=== PATIENT | female | born 1990 | race Caucasian/White ===

== ENCOUNTER 2016-11-29 01:14 | Inpatient (IN) | payer OTHER ==
[2016-11-29] VITALS (54 sets, daily range): BP systolic 108–207; BP diastolic 55–178; PULSE 80–184; RESP 16–18; TEMP 97.9–99.6; O2SAT 98
[~2016-11-29] VITALS: Ht 167.6 cm; Wt 86.2 kg
[~2016-11-29 01:14] MED LIST: CALNTAB; LEVO75TA3 PO
[2016-11-29] MEDS ORDERED: LACTATED RINGER'S 1000 ML INJ 1,000 ML IV PRN (02:53)
[2016-11-29] MEDS ORDERED: CITRIC ACID-SODIUM CITRATE LIQ 30 ML UDC PO SCH (03:00)
[2016-11-29] MEDS ORDERED: LIDOCAINE HCL 1% 50 ML VIAL I-DERMAL PRN (03:00)
[2016-11-29] MEDS ORDERED: OXYTOCIN 30 UNITS-500ML PREMIX 500 ML IV ONE (03:00)
[2016-11-29] MEDS ORDERED: SODIUM CHLORID 0.9% 500 ML INJ 500 ML IV PRN (03:00)
[2016-11-29] MEDS ORDERED: MINERAL OIL 10 ML VIAL TOPICAL PRN (03:00)
[2016-11-29] MEDS ORDERED: LIDOCAINE HCL 1% 50 ML VIAL INFIL PRN (03:00)
[2016-11-29] MEDS ORDERED: ONDANSETRON HCL 4 MG/2 ML VIAL IV PRN (03:00)
[2016-11-29] MEDS ORDERED: SODIUM CHLOR 0.9% 1000 ML INJ 1,000 ML IV PRN (03:13)
[2016-11-29 03:33] LABS: BACTERIA, URINE RARE /hpf; BLOOD, URINE MOD (NEG); GLUCOSE,URINE NEG (NEG); KETONE, URINE NEG (NEG); NITRITE,URINE NEG (NEG); SQUAMOUS EPITHELIAL CELL URINE 1 /hpf (0-5); URINE COLOR LIGHT-YELLOW (YELLW/STRAW)
[2016-11-29 03:35] LABS: COMMENT (UR) CULT NOT INDICATED; CULTURE IF INDICATED CULT NOT INDICATED
--- NOTE | 2016-11-29 03:38 | HHI.HP ---
HPI Chief Complaint Contractions Date Seen: Nov 29, 2016 Time Seen: 02:50 Travel History International Travel<30 Days: No Contact w/Intl Traveler<30Days: No Known Affected Area: No History of Present Illness HPI 25-year-old at 40 weeks of gestation, EDC is 11/29/16, patient presents to labor and delivery complaining of frequent contractions, she denies leakage of fluids, vaginal bleeding and decreased movements. care is with the [facility]. course is significant for hypothyroidism. Examination shows patient is verito irregularly, vaginal exam shows cervix is 2 cm dilated 80% effaced -3 station, bedside ultrasound shows oligohydramnios with maximum fluid pocket less than 2 cm. Patient appears uncomfortable , pain score is 8 out of 10 during contractions. Para: 0 : 1 Miscarriage: 0 : 0 History Past Medical History Narrative Medical Hypothyroidism Obstetric History Obstetric History Primigravida Past Surgical History Narrative Surgical Denies Family History Narrative Family History Mother has hypothyroidism, grandmother has heart disease Social History Alcohol Use: No Tobacco Use: No Substance Abuse: No Allergies-Medications (Allergen,Severity, Reaction): Coded Allergies: No Known Allergies (Unverified , 11/25/16) Home Meds Reported Medications Levothyroxine 75 Mcg Tab75 Mcg PO EVERY OTHER DAY #30 TAB Ref 0 10/18/16 Vitamin (Calna)1 Tab Tab 08/30/16 Review of Systems Except as stated in HPI: all other systems reviewed are Neg Genitourinary: Other (contractions) Endocrine: Other (hypothyroidism) Physical Exam Narrative GENERAL: Well-nourished, well-developed patient. SKIN: Warm and dry. HEAD: Normocephalic and atraumatic. EYES: No scleral icterus. No injection or drainage. ENT: No nasal drainage noted. Mucous membranes pink. Airway patent. NECK: Supple, trachea midline. No JVD. CARDIOVASCULAR: Regular rate and rhythm without murmurs, gallops, or rubs. RESPIRATORY: Breath sounds equal bilaterally. No accessory muscle use. BREASTS: Bilateral exam showed no masses , no retractions, no nipple discharge. ABDOMEN/GI: Abdomen soft, non-tender, bowel sounds present, no rebound, no guarding Gravid to 40 weeks size Fundal Height: 40 cm GENITOURINARY: External Genitalia: intact and normal in appearance BUS glands: Normal Cervix: 2 cm, 80%, -2 station, posterior Dilatation: 2 cm Effacement: 80% Station: -2 Presentation: Cephalic Membranes: Intact Uterine Contractions: Irregular FHT's: Category: one Baseline: 130s Reactive: Yes Variability: Moderate Decels: None EXTREMITIES: No cyanosis or edema. BACK: Nontender without obvious deformity. No CVA tenderness. NEUROLOGICAL: Awake and alert. Motor and sensory grossly within normal limits. Five out of 5 muscle strength in all muscle groups. Normal speech. Data Data Vital Signs Reviewed: Yes Orders Vital Signs (Adult) .ON ADMISSION (11/29/16 02:01) ^ Labor Status (11/29/16 02:01) Urinalysis - C+S If Indicated (11/29/16 02:01) ^ Non Stress Test (11/29/16 02:01) ^ Hydration (11/29/16 02:01) Admit To Inpatient (11/29/16 ) Ob (2e) Additional Admit Info (11/29/16 02:51) Admit To Inpatient (11/29/16 ) Code Status (11/29/16 02:53) Vital Signs (Adult) .Per protocol (11/29/16 02:53) Activity Oob Ad Na (11/29/16 02:53) ^ Heart (11/29/16 02:53) ^ Amnioinfusion (11/29/16 02:53) Urinary Catheter Management .ONCE (11/29/16 02:53) Diet Liquid (11/29/16 Breakfast) Lactated Ringer's 1000 Ml Inj (Lr 1000 M (11/29/16 02:53) Lactated Ringer's 1000 Ml Inj (Lr 1000 M (11/29/16 02:53) Sodium Chlorid 0.9% 500 Ml Inj (Ns 500 M (11/29/16 03:00) Sodium Chlor 0.9% 1000 Ml Inj (Ns 1000 M (11/29/16 03:13) Lidocaine 1% Inj (50 Ml) (Xylocaine 1% I (11/29/16 03:00) Citric Acid-Sodium Citrate Liq (Bicitra (11/29/16 03:00) Ondansetron Inj (Zofran Inj) (11/29/16 03:00) Fentanyl Inj (Fentanyl Inj) (11/29/16 03:00) Fentanyl Inj (Fentanyl Inj) (11/29/16 03:00) Complete Blood Count With Diff (11/29/16 02:53) Hold Clot (11/29/16 02:53) Abo/Rh Blood Type (11/29/16 02:53) Type And Screen (11/29/16 02:53) Resp Oxygen Non Rebreathe Mask (11/29/16 ) ^ Epidural / Intrathecal Infus (11/29/16 02:53) Oxytocin 30 Units-500ml Premix (Pitocin (11/29/16 03:00) Lidocaine 1% Inj (50 Ml) (Xylocaine 1% I (11/29/16 03:00) Light Mineral Oil (Muri-Lube Oil) (11/29/16 03:00) Inpatient Certification (11/29/16 ) Assessment/Plan Problem List: (1) 40 weeks gestation of (2) Oligohydramnios in alfonso in third trimester Assessment and Plan Term at 40 weeks of gestation with oligohydramnios in early labor, reassuring heart status. GBS is negative. 1. Term at 40 weeks of gestation with oligohydramnios in early labor. * Admit to labor and delivery * Continuous heart tracing * Admission blood work * IV fluid hydration * May augment labor with Pitocin * Patient may have IV pain medications or epidural for pain management * Monitor progress of labor * official BPP/FRANNY in a.m. * Anticipate vaginal delivery Discharge Planning We'll discharge patient to home in 2-3 days after delivery Carlos De Paz MD Nov 29, 2016 03:38
[2016-11-29 03:46] LABS: AUTOMATED NEUTROPHIL # 10.3 TH/MM3 (1.8-7.7); BASOPHIL % 0.2 % (0.0-2.0); EOSINOPHIL # 0.1 TH/MM3 (0-0.4); EOSINOPHIL % 0.7 % (0.0-4.0); HEMATOCRIT 38.8 % (35.0-46.0); HEMO FLAGS DIFF FINAL; LYMPH % 10.8 % (9.0-44.0); LYMPHOCYTE # 1.3 TH/MM3 (1.0-4.8); MEAN CELL VOLUME 88.5 FL (80.0-100.0); MEAN CORPUSCULAR HEMOGLOBIN 30.7 PG (27.0-34.0); MEAN CORPUSCULAR HGB CONC 34.7 % (32.0-36.0); MONO % 5.7 % (0.0-8.0); NEUT % 82.6 % (16.0-70.0); PLATELET COUNT 178 TH/MM3 (150-450); RED BLOOD COUNT 4.39 MIL/MM3 (4.00-5.30); RED CELL DISTRIBUTION WIDTH 13.3 % (11.6-17.2); WHITE BLOOD COUNT 12.5 TH/MM3 (4.0-11.0)
[2016-11-29] MEDS: LACTATED RINGER'S 1000 ML INJ 1,000 ML IV SCH ×3 (04:29→14:40)
[2016-11-29] MEDS ORDERED: OXYTOCIN 30 UNITS-500ML PREMIX 500 ML IV SCH (09:00)
--- NOTE | 2016-11-29 09:06 | PD.LABORPN ---
Subjective Subjective Pt is doing well, reports frequent contractions. In some discomfort from them and requesting epidural. (Trinidad Marc MD R1) Objective Vital Signs Vital Signs Date Time Temp Pulse Resp B/P Pulse Ox O2 Delivery O2 Flow Rate FiO2 11/29/16 07:28 18 11/29/16 05:59 18 11/29/16 04:30 18 11/29/16 03:25 18 Objective Pelvic Exam: Dilatation: [-] 3 Effacement: [-] 80 Station: [-] -2 Presentation: [-] vertex Membranes: [intact ] Uterine Contractions: every 4 minutes FHT's: Category: [-] 1 Baseline: [-] 140 Reactive: [-] Yes with accelerations Variability: [-] Moderate Decels: [-] No (Trinidad Marc MD R1) Assessment/Plan Problem List: (1) 40 weeks gestation of (2) Oligohydramnios in alfonso in third trimester Assessment and Plan G1PO at 40/1 in labor -Continue Routine intrapartum care -Pt desires epidural -Category 1 tracing -BPP 10/10- FRANNY 9.7 after hydration -Hep (-) GBS (-) -Anticipate vaginal delivers DW: Dr De Paz SDW: Dr. Becerra (Trinidad Marc MD R1) Attestation Patient seen and examined with the resident under direct supervision, I agree with the assessment and plan. (Carlos De Paz MD) Trinidad Marc MD R1 Nov 29, 2016 09:06 Carlos De Paz MD Dec 04, 2016 18:56
--- NOTE | 2016-11-29 10:53 | PD.LABORPN ---
Subjective Subjective Pt having regular contractions every two to four minutes. She is amenable to having water broken. Is still interested in epidural. Objective Vital Signs Vital Signs Date Time Temp Pulse Resp B/P Pulse Ox O2 Delivery O2 Flow Rate FiO2 11/29/16 09:57 80 127/74 11/29/16 09:29 85 18 127/77 11/29/16 07:28 18 11/29/16 05:59 18 11/29/16 04:30 18 11/29/16 03:25 18 Objective Pelvic Exam: Dilatation: [-] 4-5cm Effacement: [-] 90% Station: [-] -2 Presentation: [-] vertex Membranes: artificial ROM @10:30 Uterine Contractions: q2-4w FHT's: Category: [-] 1 Baseline: [-] 135 Reactive: [-] yes, with accels Variability: [-] moderate Decels: [-] no Assessment/Plan Problem List: (1) 40 weeks gestation of (2) Oligohydramnios in alfonso in third trimester (3) Hypothyroidism Assessment and Plan G1PO at 40/1 in active labor. 1. Active Labor -Continue Routine intrapartum care -Pt desires epidural -Category 1 tracing -BPP (11/29): 10/10- FRANNY 9.7 after hydration -Hep (-) GBS (-) -Anticipate vaginal delivery -Active ROM at 10:30am with clear fluid. Will re-check cervix at 12:30pm and make decision whether to aggressively run pitocin -Pit running at 2mL/hr at present 2. Hypothyroidism -Continue Levothyroxine 75mg every other day SDW: Dr. Smith, Trinidad Miranda MD R1 Nov 29, 2016 10:53
[2016-11-29] MEDS ORDERED: ePHEDrine/NS 25 MG/5 ML SYR IV PRN (13:45)
[2016-11-29] MEDS ORDERED: NO SYSTEM NARCOTICS XX PRN (13:45)
[2016-11-29] MEDS ORDERED: fentaNYL 2MCG-BUPIV 0.125% INJ 100 ML EPIDURAL SCH (13:45)
[2016-11-29] MEDS ORDERED: DO NOT ADMINISTER ANTICOAGULANTS XX PRN (13:45)
--- NOTE | 2016-11-29 15:33 | PD.OB.DELI ---
Anesthesia: Epidural Episiotomy: None Vaginal Delivery: Normal, Spontaneous Presentation: Occiput anterior Nuchal Cord: None Infant: Male One Minute : 8 Five Minute : 9 Weight: 4115 Infant Care: Suctioned, Intubated and suctioned, Spontaneous crying, Responded to stimulation Placenta: Spontaneous delivery, Intact, 3 vessel cord Laceration: Vaginal laceration, Perineal laceration, 2 deg Repair: Chromic running Trinidad Marc MD R1 Nov 29, 2016 15:33
[2016-11-29] MEDS ORDERED: ACETAMINOPHEN 325 MG TAB PO PRN (15:45)
[2016-11-29] MEDS ORDERED: ONDANSETRON ODT 4 MG TAB PO PRN (15:45)
[2016-11-29] MEDS ORDERED: ALUMINUM/MAGNESIUM/SIMETH 30 ML CUP PO PRN (15:45)
[2016-11-29] MEDS ORDERED: SODIUM CHLORIDE 0.9% FLUSH 5 ML FLUSH IV PRN (15:45)
[2016-11-29] MEDS ORDERED: ZOLPIDEM TARTRATE 5 MG TAB PO PRN (15:45)
[2016-11-29] MEDS ORDERED: oxyCODONE/ACETAMINOPHEN 5 MG/325 MG TAB PO PRN ×2 (15:45)
[2016-11-29] MEDS ORDERED: DIPHTH/TETANUS/ACEL PERTUSSIS (BOOSTER) 0.5 ML VIAL/PFS IM ONE (16:00)
[2016-11-29] MEDS ORDERED: MEASLES, MUMPS, RUBELLA VACCINE 0.5 ML VIAL SQ ONE (16:00)
--- NOTE | 2016-11-29 16:41 | PD.LABORPN ---
Subjective Subjective OB attending Note Pt delivered spontaneously over perineum with a 2 nd deg laceration , wt 4115 gm, 8/9 male ., placenta out spontaneously intact., laceration repaired in layers with 2-0 chromic ., EBL 100 cc., Mother and baby doing well ., Delivery done by [facility] residents and they did a good job Objective Vital Signs Vital Signs Date Time Temp Pulse Resp B/P Pulse Ox O2 Delivery O2 Flow Rate FiO2 11/29/16 16:05 98.6 11/29/16 16:01 87 120/56 11/29/16 14:20 85 130/66 11/29/16 14:00 88 111/68 11/29/16 13:40 89 115/67 11/29/16 13:30 98.5 11/29/16 13:20 89 121/68 11/29/16 13:15 99.6 11/29/16 13:15 18 11/29/16 13:00 84 109/65 11/29/16 12:40 81 108/58 11/29/16 12:28 16 11/29/16 12:20 176 121/59 11/29/16 12:00 93 121/80 11/29/16 11:55 89 114/74 11/29/16 11:50 90 121/73 11/29/16 11:46 184 207/178 11/29/16 11:40 90 11/29/16 11:40 87 124/78 11/29/16 11:35 88 11/29/16 11:35 96 127/75 11/29/16 11:32 83 111/68 11/29/16 11:30 86 11/29/16 11:30 87 115/66 11/29/16 11:28 98.6 11/29/16 11:25 83 11/29/16 11:25 86 18 116/59 11/29/16 11:20 90 122/61 11/29/16 11:20 87 11/29/16 11:15 85 11/29/16 11:14 83 127/65 11/29/16 11:10 88 11/29/16 11:05 92 127/68 11/29/16 11:05 93 11/29/16 11:00 85 11/29/16 10:56 89 140/56 11/29/16 10:55 115 11/29/16 10:42 84 18 123/68 11/29/16 09:57 80 127/74 11/29/16 09:29 85 18 127/77 Objective Assessment/Plan Problem List: (1) 40 weeks gestation of (2) Oligohydramnios in alfonso in third trimester (3) Hypothyroidism Humphrey Smith II, MD Nov 29, 2016 16:41
[2016-11-29] MEDS: IBUPROFEN 600 MG TAB PO PRN (18:22)
[2016-11-29] MEDS: WITCH HAZEL 50%/GLYCERIN 12.5% 40 PAD JAR TOPICAL PRN (20:15)
[2016-11-29] MEDS: BENZOCAINE 20% TOPICAL SPRAY 60 ML CAN TOPICAL PRN (20:15)
[2016-11-29] MEDS: DOCUSATE SODIUM 50 MG/SENNA 8.6 MG TAB PO PRN (20:15)
[2016-11-29] MEDS ORDERED: SODIUM CHLORIDE 0.9% FLUSH 5 ML FLUSH IV SCH (21:00)
[2016-11-30] MEDS: IBUPROFEN 600 MG TAB PO PRN ×4 (00:21→18:54)
[2016-11-30] MEDS ORDERED: LEVOTHYROXINE SODIUM 25 MCG TAB PO ONE (06:00)
--- NOTE | 2016-11-30 07:21 | HHI.OB ---
Subjective Post Day: 1 Remarks Patient is doing well this morning. Abdominal pain control with medications. Vaginal bleeding slightly more than a period. No nausea/vomiting. No chest pain or shortness of breath. Objective Vitals/I&O Vital Signs Date Time Temp Pulse Resp B/P Pulse Ox O2 Delivery O2 Flow Rate FiO2 11/29/16 20:20 88 18 116/68 11/29/16 20:20 98.0 98 11/29/16 18:28 97.9 90 18 121/68 11/29/16 17:01 89 123/67 11/29/16 16:50 18 11/29/16 16:46 87 129/68 11/29/16 16:35 18 11/29/16 16:05 98.6 11/29/16 16:01 87 120/56 11/29/16 14:20 85 130/66 11/29/16 14:00 88 111/68 11/29/16 13:40 89 115/67 11/29/16 13:30 98.5 11/29/16 13:20 89 121/68 11/29/16 13:15 99.6 11/29/16 13:15 18 11/29/16 13:00 84 109/65 11/29/16 12:40 81 108/58 11/29/16 12:28 16 11/29/16 12:20 176 121/59 11/29/16 12:00 93 121/80 11/29/16 11:55 89 114/74 11/29/16 11:50 90 121/73 11/29/16 11:46 184 207/178 11/29/16 11:40 90 11/29/16 11:40 87 124/78 11/29/16 11:35 88 11/29/16 11:35 96 127/75 11/29/16 11:32 83 111/68 11/29/16 11:30 86 11/29/16 11:30 87 115/66 11/29/16 11:28 98.6 11/29/16 11:25 83 11/29/16 11:25 86 18 116/59 11/29/16 11:20 90 122/61 11/29/16 11:20 87 11/29/16 11:15 85 11/29/16 11:14 83 127/65 11/29/16 11:10 88 11/29/16 11:05 92 127/68 11/29/16 11:05 93 11/29/16 11:00 85 11/29/16 10:56 89 140/56 11/29/16 10:55 115 11/29/16 10:42 84 18 123/68 11/29/16 09:57 80 127/74 11/29/16 09:29 85 18 127/77 11/29/16 07:28 18 Objective Remarks GENERAL: Well-nourished, well-developed patient. CARDIOVASCULAR: Regular rate and rhythm without murmurs, gallops, or rubs. RESPIRATORY: Breath sounds equal bilaterally. No accessory muscle use. ABDOMEN/GI: Abdomen soft, non-tender. Fundus: Firm, non-tender at umbilicus. GENITOURINARY: Light to moderate bleeding. EXTREMITIES: No cyanosis or edema, non-tender, without signs of DVT. Medications and IVs Current Medications Medications (Trade) Dose Ordered Sig/Jonel Route Start Time Stop Time Status Last Admin Lactated Ringer's 1,000 ml @ 125 mls/hr Q8H IV 11/29/16 02:53 11/29/16 14:40 Lactated Ringer's 1,000 ml @ 3,000 mls/hr Q20M PRN IV 11/29/16 02:53 Sodium Chloride 500 ml @ 1,000 mls/hr ONCE PRN IV 11/29/16 03:00 12/06/16 02:59 (NS 1000 ml Inj) 1,000 ml @ 100 mls/hr Q10H PRN IV 11/29/16 03:13 (Zofran Inj) 4 mg Q6H PRN IV 11/29/16 03:00 (fentaNYL INJ) 50 mcg Q1H PRN IV PUSH 11/29/16 03:00 (fentaNYL INJ) 100 mcg Q1H PRN IV PUSH 11/29/16 03:00 Mineral Oil 10 ml 10 ml UNSCH PRN TOPICAL 11/29/16 03:00 (Pitocin 30 Units-NS 500 ml Premix) 500 ml @ 0 mls/hr TITRATE IV 11/29/16 09:00 11/29/16 09:59 Miscellaneous Information No systemic narcotics to be given except... UNSCH PRN XX 11/29/16 13:45 11/30/16 13:44 Miscellaneous Information DO NOT ADMINISTER ANY ANTICOAGUL... UNSCH PRN XX 11/29/16 13:45 11/30/16 13:44 (fentaNYL 2MCG-BUPIV 0.125% INJ) 100 ml @ 0 mls/hr TITRATE EPIDURAL 11/29/16 13:45 (ePHEDrine/NS 25 MG/5 ML SYR) 10 mg UNSCH PRN IV 11/29/16 13:45 (NS Flush) 2 ml BID IV 11/29/16 21:00 (NS Flush) 2 ml UNSCH PRN IV 11/29/16 15:45 (Tylenol) 650 mg Q4H PRN PO 11/29/16 15:45 (Motrin) 600 mg Q6H PRN PO 11/29/16 15:45 11/30/16 06:37 (Percocet 5-325 Mg) 1 tab Q4H PRN PO 11/29/16 15:45 (Percocet 5-325 Mg) 2 tab Q4H PRN PO 11/29/16 15:45 (Americaine 20% Top Spr) 1 spray Q4H PRN TOPICAL 11/29/16 15:45 11/29/16 20:15 (Tucks Pads) 1 applic QID PRN TOPICAL 11/29/16 15:45 11/29/16 20:15 (Aviva-Colace) 2 tab Q12H PRN PO 11/29/16 15:45 11/29/16 20:15 (Ambien) 5 mg HS PRN PO 11/29/16 15:45 (Mag-Al Plus Susp Liq) 15 ml Q8H PRN PO 11/29/16 15:45 (Zofran Odt) 4 mg Q6H PRN PO 11/29/16 15:45 (Stuartnatal Plus 3 ) 1 tab DAILY PO 11/30/16 09:00 Assessment/Plan Problem List: (1) Vaginal delivery Assessment and Plan 25 year old PPD1 1. Care - AFVSS since delivery - Motrin prn pain - Encouraged OOB, as tolerated - Pelvic rest x 6 weeks - Will f/u with [facility] in 6 weeks - Anticipate d/c tomorrow Discharge Planning Likely tomorrow. Mamadou Becerra MD R2 Nov 30, 2016 07:21
[2016-11-30 08:40] VITALS: BP 112/68; PULSE 86; RESP 18; TEMP 98.1
[2016-11-30] MEDS: MULTIVIT/MIN/PREN/FOL AC/IRON PRENATAL TAB PO SCH (09:00)
[2016-11-30] MEDS: BENZOCAINE 20% TOPICAL SPRAY 60 ML CAN TOPICAL PRN (16:41)
[2016-11-30] MEDS: WITCH HAZEL 50%/GLYCERIN 12.5% 40 PAD JAR TOPICAL PRN (16:41)
[2016-11-30 20:10] VITALS: BP 131/72; PULSE 87; RESP 18; TEMP 97.9
[2016-12-01] MEDS: IBUPROFEN 600 MG TAB PO PRN ×3 (00:56→12:52)
[2016-12-01] MEDS ORDERED: LEVOTHYROXINE SODIUM 25 MCG TAB PO SCH (06:00)
--- NOTE | 2016-12-01 07:13 | HHI.OB ---
Subjective Post Day: 2 Remarks Patient is doing well this morning. Belly pain less than yesterday, and controlled with medications. Vaginal bleeding decreased. No nausea/vomiting. No chest pain or shortness of breath. Objective Vitals/I&O Vital Signs Date Time Temp Pulse Resp B/P Pulse Ox O2 Delivery O2 Flow Rate FiO2 11/30/16 20:10 97.9 87 18 131/72 Objective Remarks GENERAL: Well-nourished, well-developed patient. CARDIOVASCULAR: Regular rate and rhythm without murmurs, gallops, or rubs. RESPIRATORY: Breath sounds equal bilaterally. No accessory muscle use. ABDOMEN/GI: Abdomen soft, non-tender. Fundus: Firm, non-tender at umbilicus. GENITOURINARY: Light to moderate bleeding. EXTREMITIES: No cyanosis or edema, non-tender, without signs of DVT. Medications and IVs Current Medications Medications (Trade) Dose Ordered Sig/Jonel Route Start Time Stop Time Status Last Admin Lactated Ringer's 1,000 ml @ 125 mls/hr Q8H IV 11/29/16 02:53 11/29/16 14:40 Lactated Ringer's 1,000 ml @ 3,000 mls/hr Q20M PRN IV 11/29/16 02:53 Sodium Chloride 500 ml @ 1,000 mls/hr ONCE PRN IV 11/29/16 03:00 12/06/16 02:59 (NS 1000 ml Inj) 1,000 ml @ 100 mls/hr Q10H PRN IV 11/29/16 03:13 (Zofran Inj) 4 mg Q6H PRN IV 11/29/16 03:00 (fentaNYL INJ) 50 mcg Q1H PRN IV PUSH 11/29/16 03:00 (fentaNYL INJ) 100 mcg Q1H PRN IV PUSH 11/29/16 03:00 Mineral Oil 10 ml 10 ml UNSCH PRN TOPICAL 11/29/16 03:00 Oxytocin 500 ml @ 0 mls/hr TITRATE IV 11/29/16 09:00 11/29/16 09:59 (fentaNYL 2MCG-BUPIV 0.125% INJ) 100 ml @ 0 mls/hr TITRATE EPIDURAL 11/29/16 13:45 (ePHEDrine/NS 25 MG/5 ML SYR) 10 mg UNSCH PRN IV 11/29/16 13:45 (NS Flush) 2 ml BID IV 11/29/16 21:00 (NS Flush) 2 ml UNSCH PRN IV 11/29/16 15:45 (Tylenol) 650 mg Q4H PRN PO 11/29/16 15:45 (Motrin) 600 mg Q6H PRN PO 11/29/16 15:45 12/01/16 06:32 (Percocet 5-325 Mg) 1 tab Q4H PRN PO 11/29/16 15:45 (Percocet 5-325 Mg) 2 tab Q4H PRN PO 11/29/16 15:45 (Americaine 20% Top Spr) 1 spray Q4H PRN TOPICAL 11/29/16 15:45 11/30/16 16:41 (Tucks Pads) 1 applic QID PRN TOPICAL 11/29/16 15:45 11/30/16 16:41 (Aviva-Colace) 2 tab Q12H PRN PO 11/29/16 15:45 11/29/16 20:15 (Ambien) 5 mg HS PRN PO 11/29/16 15:45 (Mag-Al Plus Susp Liq) 15 ml Q8H PRN PO 11/29/16 15:45 (Zofran Odt) 4 mg Q6H PRN PO 11/29/16 15:45 (Stuartnatal Plus 3 ) 1 tab DAILY PO 11/30/16 09:00 (Synthroid) 25 mcg DAILY@0600 PO 12/01/16 06:00 12/01/16 06:32 Assessment/Plan Problem List: (1) Vaginal delivery Assessment and Plan 25 year old PPD2 1. Care - AFVSS since delivery - Motrin prn pain - Encouraged OOB, as tolerated - Pelvic rest x 6 weeks - Will f/u with care for women in 6 weeks - dc today Discharge Planning today Mamadou Becerra MD R2 Dec 01, 2016 07:13
[2016-12-01] MEDS ORDERED: IBUP-232 PO (07:15)
[2016-12-01] MEDS ORDERED: PREN29TA PO (07:15)
[2016-12-01] MEDS ORDERED: SENN1TAB PO (07:15)
--- NOTE | 2016-12-01 07:16 | HHI.DCPOC ---
Discharge Care Plan Diagnosis: (1) Vaginal delivery Report Symptoms to Your Doctor -Temperate above 100.5 degrees -Redness, of incision or excessive or foul smelling drainage -Unusual pain or calf pain -Increased vaginal bleeding -Painful or difficulty urinating -Feelings of extreme sadness or anxiety after 2 weeks Goals to Promote Your Health * To prevent worsening of your condition and complications * To maintain your health at the optimal level Directions to Meet Your Goals Take your medications as prescribed Follow your dietary instruction Follow activity as directed Ensure plenty of rest for recovery Drink fluids for hydration Keep your appointments as scheduled Take your immunizations and boosters as scheduled If your symptoms worsen call your PCP, if no PCP go to Urgent Care Center or Emergency Room Smoking is Dangerous to Your Health. Avoid second hand smoke Call the 24-hour crisis hotline for domestic abuse at Patient seen and understands discharge process. Agree with above plan Mamadou Becerra MD R2 Dec 01, 2016 07:16 Shakira Lomeli MD Dec 01, 2016 08:00
[2016-12-01 07:30] VITALS: BP 112/73; PULSE 83; RESP 18; TEMP 97.8
[2016-12-01] MEDS: MULTIVIT/MIN/PREN/FOL AC/IRON PRENATAL TAB PO SCH (09:06)
[2016-12-01] MEDS: DOCUSATE SODIUM 50 MG/SENNA 8.6 MG TAB PO PRN (09:06)
--- NOTE | 2016-12-01 13:53 | PD.CIRC ---
Circumcision Procedure Note Procedure Date: Dec 01, 2016 Procedure Time: 12:33 Procedure: Circumcision Pre-procedure diagnosis: circumcision Post-procedure diagnosis: circumcision Informed Consent: The risks, benefits, indications, potential complications, and alternatives were explained to the patient/family and informed consent obtained. The baby was brought to the procedure room where a time-out was done to ID the patient and the procedure. Performing Physician: Shayna Michael Anesthesia used: 1% lidocaine injected, other (Emla) Type of block: dorsal penile block Device used: Gomco 1.3 Description: The baby was prepped and draped in a sterile fashion. The procedure followed standard technique. The baby tolerated the procedure well without complication. Estimated blood loss: minimal Specimen: No hSayna Samuel MD Dec 01, 2016 13:53
[2017-04-13] MEDS ORDERED: AUGM500T7 PO (14:07)
== END 2016-12-01 14:50 | disposition home or self-care (01) | DRG 775 ==
LOC: HOBED 01:14 → H2EA 02:59 → H1EA 18:23
PROVIDERS: ADMIT Obstetrics & Gynecology; ATTEND Obstetrics & Gynecology
PROC: 0KQM0ZZ Repair Perineum Muscle, Open Approach (ICD-10-PCS; principal; 2016-11-29)
PROC: 10E0XZZ Delivery of Products of Conception, External Approach (ICD-10-PCS; 2016-11-29)
PROC: 0UQGXZZ Repair Vagina, External Approach (ICD-10-PCS; 2016-11-29)
PROC: 3E0R3CZ (ICD-10-PCS; 2016-11-29)
PROC: 00HU33Z Insertion of Infusion Device into Spinal Canal, Percutaneous Approach (ICD-10-PCS; 2016-11-29)
DX: O41.03X0 Oligohydramnios, third trimester, not applicable or unspecified (principal); O71.4 Obstetric high vaginal laceration alone; O70.1 Second degree perineal laceration during delivery; Z37.0 Single live birth; Z3A.40 40 weeks gestation of pregnancy; O99.284 Endocrine, nutritional and metabolic diseases complicating childbirth; E03.9 Hypothyroidism, unspecified
CPT/HCPCS: 59025; 76816; 76819; 81001; 85025; 86900; 86901; J2590; J7120

== ENCOUNTER 2017-04-30 11:25 | Emergency (ER) | payer OTHER, MEDICAID ==
[~2017-04-30] VITALS: Ht 167.6 cm; Wt 67.9 kg
[~2017-04-30 11:25] MED LIST changes: +AUGM500T7 PO
[2017-04-30 11:36] VITALS: BP 122/73; PULSE 110; RESP 15; TEMP 99.1; O2SAT 100
[2017-04-30] MEDS ORDERED: LEVO25TA4 PO (11:47)
[2017-04-30 11:59] LABS: AUTOMATED NEUTROPHIL # 6.1 TH/MM3 (1.8-7.7); BASOPHIL % 0.3 % (0.0-2.0); EOSINOPHIL # 0.1 TH/MM3 (0-0.4); EOSINOPHIL % 0.9 % (0.0-4.0); HEMATOCRIT 43.8 % (35.0-46.0); HEMO FLAGS DIFF FINAL; LYMPH % 10.1 % (9.0-44.0); LYMPHOCYTE # 0.8 TH/MM3 (1.0-4.8); MEAN CELL VOLUME 86.9 FL (80.0-100.0); MEAN CORPUSCULAR HEMOGLOBIN 29.1 PG (27.0-34.0); MEAN CORPUSCULAR HGB CONC 33.5 % (32.0-36.0); MONO % 7.9 % (0.0-8.0); NEUT % 80.8 % (16.0-70.0); PLATELET COUNT 232 TH/MM3 (150-450); RED BLOOD COUNT 5.05 MIL/MM3 (4.00-5.30); RED CELL DISTRIBUTION WIDTH 11.6 % (11.6-17.2); WHITE BLOOD COUNT 7.6 TH/MM3 (4.0-11.0)
[2017-04-30] MEDS ORDERED: ONDANSETRON HCL 4 MG/2 ML VIAL IVP ONE (12:00)
[2017-04-30] MEDS ORDERED: SODIUM CHLOR 0.9% 1000 ML INJ 1,000 ML IV ONE (12:00)
[2017-04-30 12:11] LABS: POTASSIUM 3.6 MEQ/L (3.5-5.1)
[2017-04-30 12:15] LABS: BICARBONATE 24.5 MEQ/L (21.0-32.0)
[2017-04-30 13:04] VITALS: BP 118/66; PULSE 70; RESP 18; O2SAT 100
--- NOTE | 2017-04-30 13:21 | PD ---
HPI Chief Complaint: GI Complaint Time Seen by Provider: 11:40 Travel History International Travel<30 days: No Contact w/Intl Traveler<30days: No Traveled to known affect area: No History of Present Illness HPI The patient was seen and examined in the presence of the nurse. She complains of diarrhea for 10 days. It started while she was taking amoxicillin so she stopped that but 9 days later she still has diarrhea. No vomiting or abdominal pain or fever. Symptoms severity is moderate. She is worried about getting dehydrated because she is breast-feeding her baby. No alleviating factors. PFSH Past Medical History Diminished Hearing: No Thyroid Disease: Yes ?: Not LMP: 15 MONTHS : 1 Para: 0 Miscarriage: 0 : 0 Social History Alcohol Use: No Tobacco Use: No Substance Use: No Allergies-Medications (Allergen,Severity, Reaction): Coded Allergies: No Known Allergies (Unverified , 04/30/17) Reported Meds & Prescriptions Reported Meds & Active Scripts Active Reported Levothyroxine (Levothyroxine Sodium) 25 Mcg Tab 25 Mcg PO DAILY Review of Systems General / Constitutional: No: Fever Eyes: No: Visual changes HENT: No: Headaches Cardiovascular: No: Chest Pain or Discomfort Respiratory: No: Shortness of Breath Gastrointestinal: Positive: Diarrhea, No: Abdominal Pain Genitourinary: No: Dysuria Musculoskeletal: No: Pain Skin: No Rash Neurologic: No: Weakness Psychiatric: No: Depression Endocrine: No: Polydipsia Hematologic/Lymphatic: No: Easy Bruising Physical Exam Narrative GENERAL: Well-nourished, well-developed patient in no apparent distress. SKIN: Focused skin assessment reveals no rash and nodules. Skin is Warm and dry. HEAD: Atraumatic. Normocephalic. EYES: Pupils equal and round. No scleral icterus. No injection or drainage. ENT: No nasal bleeding or discharge. Mucous membranes pink and moist. NECK: Trachea midline. No JVD. CARDIOVASCULAR: Regular rate and rhythm. No murmur appreciated. RESPIRATORY: No accessory muscle use. Clear to auscultation. Breath sounds equal bilaterally. GASTROINTESTINAL: Abdomen soft, non-tender, nondistended. Hepatic and splenic margins not palpable. MUSCULOSKELETAL: No obvious deformities. No clubbing. No cyanosis. No edema. NEUROLOGICAL: Awake and alert. No obvious cranial nerve deficits. Motor grossly within normal limits. Normal speech. PSYCHIATRIC: Appropriate mood and affect; insight and judgment normal. Data Data Last Documented VS Vital Signs Date Time Temp Pulse Resp B/P Pulse Ox O2 Delivery O2 Flow Rate FiO2 04/30/17 13:04 70 18 118/66 100 Room Air 04/30/17 11:36 99.1 Orders Iv Access Insert/Monitor (04/30/17 11:48) Complete Blood Count With Diff (04/30/17 11:48) Basic Metabolic Panel (Bmp) (04/30/17 11:48) Sodium Chlor 0.9% 1000 Ml Inj (Ns 1000 M (04/30/17 12:00) Ondansetron Inj (Zofran Inj) (04/30/17 12:00) Enteric Path (Stool) (04/30/17 12:36) Stool Ova And Parasite Screen (04/30/17 12:36) Labs Laboratory Tests Test 04/30/17 11:55 White Blood Count 7.6 TH/MM3 Red Blood Count 5.05 MIL/MM3 Hemoglobin 14.7 GM/DL Hematocrit 43.8 % Mean Corpuscular Volume 86.9 FL Mean Corpuscular Hemoglobin 29.1 PG Mean Corpuscular Hemoglobin 33.5 % Concent Red Cell Distribution Width 11.6 % Platelet Count 232 TH/MM3 Mean Platelet Volume 7.6 FL Neutrophils (%) (Auto) 80.8 % Lymphocytes (%) (Auto) 10.1 % Monocytes (%) (Auto) 7.9 % Eosinophils (%) (Auto) 0.9 % Basophils (%) (Auto) 0.3 % Neutrophils # (Auto) 6.1 TH/MM3 Lymphocytes # (Auto) 0.8 TH/MM3 Monocytes # (Auto) 0.6 TH/MM3 Eosinophils # (Auto) 0.1 TH/MM3 Basophils # (Auto) 0.0 TH/MM3 CBC Comment DIFF FINAL Differential Comment Sodium Level 140 MEQ/L Potassium Level 3.6 MEQ/L Chloride Level 105 MEQ/L Carbon Dioxide Level 24.5 MEQ/L Anion Gap 11 MEQ/L Blood Urea Nitrogen 14 MG/DL Creatinine 0.79 MG/DL Estimat Glomerular Filtration 87 ML/MIN Rate Random Glucose 93 MG/DL Calcium Level 9.2 MG/DL MDM Medical Decision Making Medical Screen Exam Complete: Yes Emergency Medical Condition: Yes Medical Record Reviewed: Yes Differential Diagnosis Gastritis, colitis, food poisoning, medication side effect Narrative Course I have reviewed the patient's electronic medical record. IV placed CBC normal Metabolic profile normal I gave her 1 L normal saline IV and IV Zofran Stable for outpatient follow-up Stool was sent for stool studies Diagnosis Primary Impression: Diarrhea Qualified Code: A09 - Diarrhea of presumed infectious origin Additional Impression: Dehydration, mild Additional Instructions: The patient was advised to follow up with their physician and return if they worsen. Med/Other Pt SpecificInfo: Other Disposition: 01 DISCHARGE HOME Condition: Stable Matthieu Miller MD Apr 30, 2017 13:21
== END 2017-04-30 13:37 | disposition home or self-care (01) ==
LOC: PHED 11:25
DX: R19.7 Diarrhea, unspecified (principal); E86.0 Dehydration
CPT/HCPCS: 80048; 85025; 87328; 87329; 87506; 96361; 96374; 99284; J2405; J7030

== ENCOUNTER 2018-04-06 09:44 | Emergency (ER) | payer MEDICAID, OTHER ==
[~2018-04-06] VITALS: Ht 167.6 cm; Wt 70.0 kg
[~2018-04-06 09:44] MED LIST changes: -AUGM500T7 PO; -CALNTAB; +LEVO25TA4 PO; -LEVO75TA3 PO
[2018-04-06 09:50] VITALS: BP 136/83; PULSE 93; RESP 17; TEMP 99.6; O2SAT 100
[2018-04-06] MEDS ORDERED: LEVO.05 PO (10:07)
--- NOTE | 2018-04-06 10:25 | PD ---
HPI Chief Complaint: Related Problem Time Seen by Provider: 10:14 Travel History International Travel<30 days: No Contact w/Intl Traveler<30days: No Traveled to known affect area: No History of Present Illness HPI This is a 27-year-old female Ab0 who is at 14 weeks by dates, presents today with complaints of vaginal bleeding. Patient states she has had vaginal bleeding since her 8 weeks of . She states that she was told that she had placenta previa. She states that she was seen once in [place] for vaginal bleeding during . At that time they had a ultrasound that showed a viable . She states that when they returned home, they were seen by her OB doctor, Dr. Balderas who also did a pelvic ultrasound that showed the placenta previa. She reports that she was told that the placenta previa should improve and actually should go away once the baby gets bigger. She reports that she believes that there is slightly increased blood per vagina with some clots. There is no pelvic cramps. There is no pain. She just concerned that she may have a low blood count. The patient has Rh+ blood type. This was confirmed by looking at her blood work from the hospital visit down in [place]. PFSH Past Medical History Diminished Hearing: No Medical other: Yes Thyroid Disease: Yes Tetanus Vaccination: > 5 Years Influenza Vaccination: No ?: LMP: 12/17/17 : 2 Para: 1 Miscarriage: 0 : 0 Past Surgical History Surgical History: No Previous Surgery Social History Alcohol Use: No Tobacco Use: No Substance Use: No Allergies-Medications (Allergen,Severity, Reaction): Coded Allergies: No Known Allergies (Verified Adverse Reaction, Unknown, 04/06/18) Reported Meds & Prescriptions Reported Meds & Active Scripts Active Macrobid (Nitrofurantoin Monohydrate Macrocrystals) 100 Mg Capsule 100 Mg PO BID Reported Synthroid (Levothyroxine Sodium) 50 Mcg Tab 50 Mcg PO DAILY Review of Systems Except as stated in HPI: all other systems reviewed are Neg General / Constitutional: No: Fever, Chills HENT: No: Headaches, Vertigo, Lightheadedness Cardiovascular: No: Chest Pain or Discomfort, Palpitations, Tachycardia Respiratory: No: Cough, Shortness of Breath Gastrointestinal: Positive: Loss of Appetite (Secondary to being anxious and nervous), No: Nausea, Vomiting, Abdominal Pain Genitourinary: Positive: Vaginal Bleeding, No: Other (No cramping.) Musculoskeletal: No: Weakness, Pain Neurologic: No: Weakness, Dizziness, Headache Psychiatric: Positive: Other (Anxious) Physical Exam Narrative GENERAL: Well-nourished, well-developed patient, in no acute respiratory distress. SKIN: Focused skin assessment warm/dry. HEAD: Normocephalic/atraumatic. EYES: No scleral icterus. No injection or drainage. NECK: Supple, trachea midline. No JVD or lymphadenopathy. CARDIOVASCULAR: Regular rate and rhythm without murmurs, gallops, or rubs. RESPIRATORY: Breath sounds equal bilaterally. No accessory muscle use. GASTROINTESTINAL: Abdomen soft, non-tender, nondistended. GENITOURINARY:In the presence of the nurse Agustina, Normal external genitalia without lesions or erythema. MUSCULOSKELETAL: No cyanosis, or edema. BACK: Nontender without obvious deformity. No CVA tenderness. Data Data Last Documented VS Vital Signs Date Time Temp Pulse Resp B/P (MAP) Pulse Ox O2 Delivery O2 Flow Rate FiO2 04/06/18 12:47 97.7 83 18 111/61 (78) 80 Room Air Orders Orders Complete Blood Count With Diff (04/06/18 10:15) Basic Metabolic Panel (Bmp) (04/06/18 10:15) Urinalysis - C+S If Indicated (04/06/18 10:15) Iv Access Insert/Monitor (04/06/18 10:15) Ecg Monitoring (04/06/18 10:15) Oximetry (04/06/18 10:15) Sodium Chlor 0.9% 1000 Ml Inj (Ns 1000 M (04/06/18 13:15) Labs Laboratory Tests Test 04/06/18 10:20 04/06/18 10:40 White Blood Count 9.4 TH/MM3 Red Blood Count 4.70 MIL/MM3 Hemoglobin 14.4 GM/DL Hematocrit 41.7 % Mean Corpuscular Volume 88.8 FL Mean Corpuscular Hemoglobin 30.6 PG Mean Corpuscular Hemoglobin Concent 34.4 % Red Cell Distribution Width 12.1 % Platelet Count 234 TH/MM3 Mean Platelet Volume 7.7 FL Neutrophils (%) (Auto) 86.7 % Lymphocytes (%) (Auto) 7.9 % Monocytes (%) (Auto) 4.7 % Eosinophils (%) (Auto) 0.4 % Basophils (%) (Auto) 0.3 % Neutrophils # (Auto) 8.1 TH/MM3 Lymphocytes # (Auto) 0.7 TH/MM3 Monocytes # (Auto) 0.4 TH/MM3 Eosinophils # (Auto) 0.0 TH/MM3 Basophils # (Auto) 0.0 TH/MM3 CBC Comment DIFF FINAL Differential Comment Blood Urea Nitrogen 6 MG/DL Creatinine 0.67 MG/DL Random Glucose 90 MG/DL Calcium Level 9.5 MG/DL Sodium Level 138 MEQ/L Potassium Level 3.6 MEQ/L Chloride Level 105 MEQ/L Carbon Dioxide Level 23.1 MEQ/L Anion Gap 10 MEQ/L Estimat Glomerular Filtration Rate 104 ML/MIN Urine Color YELLOW Urine Turbidity CLEAR Urine pH 6.5 Urine Specific [place] 1.007 Urine Protein NEG mg/dL Urine Glucose (UA) NEG mg/dL Urine Ketones 40 mg/dL Urine Occult Blood LARGE Urine Nitrite NEG Urine Bilirubin NEG Urine Urobilinogen LESS THAN 2.0 MG/DL Urine Leukocyte Esterase SMALL Urine RBC 45 /hpf Urine WBC 5 /hpf Urine Squamous Epithelial Cells 1 /hpf Urine Bacteria RARE /hpf Urine Mucus FEW /lpf Microscopic Urinalysis Comment CULT NOT INDICATED MDM Medical Decision Making Medical Screen Exam Complete: Yes Emergency Medical Condition: Yes Differential Diagnosis Threatened versus missed versus placenta previa Narrative Course 27-year-old Ab0 whose at 14 weeks gestation by date, presents here with vaginal bleeding. Patient's had bleeding since 8 weeks gestation. Cervical loss is closed. There is a scant amount of blood noted in vaginal vault. There were no clots or aggressive bleeding noted through the office. Patient's H&H is stable. Bedside ultrasound confirmed IUP with heart tones of 160. Case was discussed with Dr. Balderas, patient's OB physician, who agreed with the above plan. He will see her next week in the office. Procedures Procedure Narrative Bedside ultrasound performed by this physician shows good movement. Intrauterine is consistent with 14 weeks gestation. There was heart tones that were 160. Diagnosis Primary Impression: Vaginal bleeding during Additional Impression: Cystitis Additional Instructions: Pelvic rest and bed rest until seen by Dr. Balderas. Return if worsening bleeding, passage of tissue, or any other reason that concerns you. Med/Other Pt SpecificInfo: Prescription(s) given Scripts Nitrofurantoin Monohydrate Macrocrystals (Macrobid) 100 Mg Capsule 100 MG PO BID for Infection, #14 CAP 0 Refills Prov: Garett Ibarra MD 04/06/18 Disposition: 01 DISCHARGE HOME Condition: Stable Garett Ibarra MD Apr 06, 2018 10:25
[2018-04-06 10:28] VITALS: RESP 17; O2SAT 98
[2018-04-06 10:43] LABS: AUTOMATED NEUTROPHIL # 8.1 TH/MM3 (1.8-7.7); BASOPHIL % 0.3 % (0.0-2.0); EOSINOPHIL % 0.4 % (0.0-4.0); HEMATOCRIT 41.7 % (35.0-46.0); HEMOGLOBIN 14.4 GM/DL (11.6-15.3); LYMPH % 7.9 % (9.0-44.0); LYMPHOCYTE # 0.7 TH/MM3 (1.0-4.8); MEAN CELL VOLUME 88.8 FL (80.0-100.0); MEAN CORPUSCULAR HEMOGLOBIN 30.6 PG (27.0-34.0); MEAN CORPUSCULAR HGB CONC 34.4 % (32.0-36.0); MEAN PLATELET VOLUME 7.7 FL (7.0-11.0); MONO % 4.7 % (0.0-8.0); MONOCYTE # 0.4 TH/MM3 (0-0.9); NEUT % 86.7 % (16.0-70.0); PLATELET COUNT 234 TH/MM3 (150-450); RED CELL DISTRIBUTION WIDTH 12.1 % (11.6-17.2); WHITE BLOOD COUNT 9.4 TH/MM3 (4.0-11.0)
[2018-04-06 10:57] LABS: BACTERIA, URINE RARE /hpf; BILIRUBIN, URINE NEG (NEG); BLOOD, URINE LARGE (NEG); GLUCOSE,URINE NEG (NEG); KETONE, URINE 40 mg/dL (NEG); MUCUS URINE FEW /lpf (OCC); NITRITE,URINE NEG (NEG); PH, URINE 6.5 (5.0-8.5); SQUAMOUS EPITHELIAL CELL URINE 1 /hpf (0-5); URINE COLOR YELLOW (YELLW/STRAW); URINE LEUKOCYTE ESTERASE SMALL (NEG)
[2018-04-06 11:02] LABS: BICARBONATE 23.1 MEQ/L (21.0-32.0); CALCIUM 9.5 MG/DL (8.5-10.1); CREATININE 0.67 MG/DL (0.50-1.00)
[2018-04-06 12:47] VITALS: BP 111/61; PULSE 83; RESP 18; TEMP 97.7; O2SAT 80
[2018-04-06] MEDS ORDERED: SODIUM CHLOR 0.9% 1000 ML INJ 1,000 ML IV ONE (13:15)
[2018-04-06] MEDS ORDERED: MACR100C2 PO (13:40)
[2018-04-06 14:25] VITALS: BP 124/77; TEMP 97.8
== END 2018-04-06 14:26 | disposition home or self-care (01) ==
LOC: NEPE 09:44
DX: O46.92 Antepartum hemorrhage, unspecified, second trimester (principal); O23.12 Infections of bladder in pregnancy, second trimester; N30.90 Cystitis, unspecified without hematuria; Z3A.14 14 weeks gestation of pregnancy; Z79.899 Other long term (current) drug therapy
CPT/HCPCS: 80048; 81001; 85025; 96360; 99284; J7030